=== PATIENT | female | born 1995 | race Caucasian/White ===

== ENCOUNTER 2025-04-07 14:55 | Emergency (ER) | payer OTHER, SELFPAY ==
--- OUTSIDE RECORDS SUMMARY | 2025-04-07 15:10 | XMS_ITS | Clinical Summary ---
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 Name Role Phone Pcp, None Selected Primary Care Provider Unavail able Allergies Active Allergy Reactions Criticality Noted Date Comments Promethazine 05/18/2017 Other Reaction(s): Not available Medications amitriptyline (ELAVIL) 25 mg tablet TAKE ONE TABLET BY MOUTH ONE TIME DAILY AT BEDTIME Active SUMAtriptan succinate (Zembrace Symtouch) 3 mg/0.5 mL pen injector INJECT 0.5 MILLILITER (3 MG) AT ONSET OF MIGRAINE, BY SUBCUTANEOUS ROUTE ONCE; MAY REPEAT IN 1 HOUR IF PAIN RETURNS/INCREASE S IN SEVERITY; (MAX 4 DOSES/24 HOURS) Active Active Problems Problem Noted Date Diagnosed Date Acute recurrent pansinusitis 03/29/2023 Social History Tobacco Use Types Packs/Day Years Used Date Smoking Tobacco: Former Cigarettes Q uit: 05/22/2023 Passive Smoke Exposure: Never Smokeless Tobacco: Never Tobacco Cessation:Counseling Given: Not Answered Alcohol Use Standard Drinks/Week Comments Yes 0 (1 standard drink = 0.6 oz pur e alcohol) rarely Comments No Sex and Gender Information Value Date Recorded Sex Assigned at Female 01/31/2023 3:44 PM PDT Legal Sex Female 11:03 AM PDT Gender Identity Female 01/31/2023 3:44 PM PDT Sexual Orientation Straight 01/31/2023 3: 44 PM PDT Last Filed Vital Signs Vital Sign Reading Time Taken Comments Blood Pressure 131/86 06/13/2023 9:30 AM PST Pulse 99 06/13/2023 9:30 AM PST Temperature 37.1 C (98.8 F) 06/07/2023 12:37 PM PST Respiratory Rate 14 06/07/2023 9:10 AM PST Oxygen Saturation 99% 06/13/2023 9:30 AM PST Inhaled Oxygen Concentration - - Weight 50.2 kg (110 lb 10.7 oz) 06/07/2023 8:57 AM PST Height 148.6 cm (4' 10.5) 06/07/2023 8:57 AM PS T Body Mass Index 22.74 06/07/2023 8:57 AM PST Plan of Treatment Health Maintenance Due Date Last Done Comments Depression Screening (PHQ-2) 2007 Varicella Vaccines (1 of 2 - 13+ 2-dose series) 08/07/2008 Cervical Cancer Screening 08/07/2016 COVID-19 Vaccine (2 - 2024- season) 2024 01/12/2022 Influenza Vaccine (#1) 2025 02/13/2023, 2006 DTaP,Tdap,and Td Vaccines (3 - Td or Tdap) 09/29/2029 09/30/2019, 07/18/2008 RSV Patients Over 60 years OR qualifying ( Patients) (1 - 1-dose 75+ series) 08/07/2070 Hepatitis B Vaccines Completed 02/05/1996, 1995, 1995 IPV Vaccines Completed 08/09/2000, 01/16, 1995, Additional history exists MMR Vaccines Completed 08/09/2000, 09/17/1996 HPV Vaccines Completed 04/08/2009, 12/2008, 07/18/2008 HM Pneumococcal Combined Age 0-49 Aged Out No longer eligible based on patient's age to complete this topic Hepatitis A Vaccines Aged Out No long er eligible based on patient's age to complete this topic Insurance [id number] [place] [id number] Advance Directives * Full Code (Latest Code Status on File) Date Activated Date Inactivated Comments 06/07/2023 8:49 AM 06/07/2023 2:55 PM Care 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
[2025-04-07 15:22] VITALS: BP 127/68; PULSE 91; RESP 18; TEMP 36.4; O2SAT 99; BMI 30.3
--- NOTE | 2025-04-07 16:25 | ED.GENADULT ---
HPI - General Adult <Chin Lau PA-C - Last Filed: 04/07/25 18:36> General Chief complaint: Nasal Problem Stated complaint: sinus pain, vomiting, x3-4hrs Time Seen by Provider: 04/07/25 15:40 Source: patient Mode of arrival: Family Vehicle History of Present Illness HPI narrative: 29-year-old female with past medical history migraine, sinus infections presents to the ED today with a headache and sinus pain. Patient endorses photophobia, left-sided headache with tenderness around the sinuses. Patient was diagnosed with influenza a last week, following which she developed these symptoms over the last 2 days. Patient states that she has a history of frequent sinus infections. Denies fever, chills over the last few days. Endorses nasal congestion, sinus congestion. Related Data Previous Rx's ?Medication ?Instructions ?Recorded amoxicillin 875 mg-potassium 1 tab PO Q12H 10 days #20 tabs 04/07/25 clavulanate 125 mg tablet Allergies Allergy/AdvReac Type Severity Reaction Status Date / Time No Known Drug Allergies Allergy Verified 04/07/25 15:23 Review of Systems <Chin Lau PA-C - Last Filed: 04/07/25 18:36> Constitutional Constitutional: Denies chills, Denies fatigue, Denies fever(s), Denies frequent falls, Reports headache(s), Denies lethargy and Denies weakness Eyes Eyes: Denies change in vision, Denies eye discharge, Denies irritation and Denies loss of vision ENT Ears, Nose, Mouth, and Throat: Denies change in voice, Denies dizziness, Reports headache(s), Denies neck pain, Reports sinus pain, Reports sinus pressure, Denies sore throat and Denies throat swelling Cardiovascular Cardiovascular: Denies chest pain, Denies irregular heart rhythm, Denies lightheadedness, Denies palpitations, Denies dyspnea, Denies dyspnea on exertion and Denies orthopnea Respiratory Respiratory: Denies cough, Denies dyspnea, Denies dyspnea on exertion and Denies wheezing Gastrointestinal Gastrointestinal: Denies abdominal pain, Denies change in bowel habits, Denies diarrhea, Denies nausea and Denies vomiting Musculoskeletal Musculoskeletal: Denies neck pain and Denies numbness Integumentary/Breasts Skin/Breast: Denies pruritus, Denies erythema, Denies rash and Denies wounds Neurologic Neurologic: Denies behavioral changes, Denies confusion, Denies dizziness, Denies frequent falls, Reports headache(s), Denies loss of vision, Denies numbness and Denies weakness Psychiatric Psychiatric: Denies anxiety, Denies behavioral changes, Denies confusion, Denies depression, Denies homicidal ideation and Denies suicidal ideation Endocrine Endocrine: Denies fatigue, Denies flushing and Denies palpitations Hematologic/Lymphatic Hematologic/Lymphatic: Denies easy bruising Allergic/Immunologic Allergic/Immunologic: Denies urticaria, Denies throat swelling and Denies wheezing Exam <Chin Lau PA-C - Last Filed: 04/07/25 18:36> Narrative Exam Narrative: Const General:?cooperative, healthy appearing and comfortable HENCO Head:?normal to inspection Ears:?hearing grossly normal bilaterally Nose:?external nose normal Face and sinus: Left maxillary sinus tenderness Mouth:?oral mucosae normal Throat:?posterior oropharynx normal Eyes General: photophobia Neck Neck:?normal visual inspection and no lymphadenopathy noted Resp Effort & Inspection:?normal respiratory effort Auscultation:?clear to auscultation bilaterally Cardio Rate:?regular rate Rhythm:?regular rhythm Neuro General:?patient alert, patient awake and patient oriented x3; PERRLA; gait normal Initial Vital Signs Initial Vital Signs: Vital Signs Temperature 97.5 F L 04/07/25 15:22 Pulse Rate 91 H 04/07/25 15:22 Respiratory Rate 18 04/07/25 15:22 Blood Pressure 127/68 04/07/25 15:22 Pulse Oximetry 99 04/07/25 15:22 Oxygen Delivery Method Room Air 04/07/25 15:22 <Cylde Knight DO - Last Filed: 04/07/25 21:59> Initial Vital Signs Initial Vital Signs: Vital Signs Temperature 97.5 F L 04/07/25 15:22 Pulse Rate 91 H 04/07/25 15:22 Respiratory Rate 18 04/07/25 15:22 Blood Pressure 127/68 04/07/25 15:22 Pulse Oximetry 99 04/07/25 15:22 Oxygen Delivery Method Room Air 04/07/25 15:22 Course <GERSON Ballesteros Last Filed: 04/07/25 18:36> Orders Ordered: Discontinued Medications Acetaminophen (Acetaminophen 325 Mg Tablet) 975 mg PO NOW ONE Stop: 04/07/25 17:00 Last Admin: 04/07/25 17:16 Dose: 975 mg Documented By: TIM Dexamethasone (Dexamethasone 10 Mg/Ml Vial) 10 mg PO NOW ONE Stop: 04/07/25 17:00 Last Admin: 04/07/25 17:16 Dose: 10 mg Documented By: TIM Ketorolac Tromethamine (Ketorolac 30 Mg/Ml Vial) 30 mg IM NOW ONE Stop: 04/07/25 17:00 Last Admin: 04/07/25 17:16 Dose: 30 mg Documented By: TIM Ondansetron HCl (Ondansetron 4 Mg Odt) 4 mg SL NOW ONE Stop: 04/07/25 16:53 Last Admin: 04/07/25 16:58 Dose: 4 mg Documented By: JANETTE Vital Signs Vital signs: Vital Signs - 8 hr 04/07/25 15:22 04/07/25 16:58 04/07/25 17:17 Temperature 97.5 F L Pulse Rate 91 H 75 84 Respiratory Rate 18 18 16 Blood Pressure 127/68 130/79 125/75 Pulse Oximetry 99 98 99 Oxygen Delivery Method Room Air Room Air Room Air <Clyde Knight, DO - Last Filed: 04/07/25 21:59> Orders Ordered: Discontinued Medications Acetaminophen (Acetaminophen 325 Mg Tablet) 975 mg PO NOW ONE Stop: 04/07/25 17:00 Last Admin: 04/07/25 17:16 Dose: 975 mg Documented By: TIM Dexamethasone (Dexamethasone 10 Mg/Ml Vial) 10 mg PO NOW ONE Stop: 04/07/25 17:00 Last Admin: 04/07/25 17:16 Dose: 10 mg Documented By: TIM Ketorolac Tromethamine (Ketorolac 30 Mg/Ml Vial) 30 mg IM NOW ONE Stop: 04/07/25 17:00 Last Admin: 04/07/25 17:16 Dose: 30 mg Documented By: TIM Ondansetron HCl (Ondansetron 4 Mg Odt) 4 mg SL NOW ONE Stop: 04/07/25 16:53 Last Admin: 04/07/25 16:58 Dose: 4 mg Documented By: JANETTE Vital Signs Vital signs: Vital Signs - 8 hr 04/07/25 15:22 04/07/25 16:58 04/07/25 17:17 Temperature 97.5 F L Pulse Rate 91 H 75 84 Respiratory Rate 18 18 16 Blood Pressure 127/68 130/79 125/75 Pulse Oximetry 99 98 99 Oxygen Delivery Method Room Air Room Air Room Air Medical Decision Making <Chin Lau PA-C - Last Filed: 04/07/25 18:36> [facility] Narrative Medical decision making narrative: 29-year-old female with past medical history migraine, sinus infections presents to the ED today with a headache and sinus pain. Patient does have some maxillary sinus tenderness on the left side. Headache is consistent with a primary headache. No red flags. Patient was given Toradol, Tylenol, dexamethasone in the ED. Patient discharged home on antibiotics. ED return precautions discussed with patient. Patient verbalized understanding. Medical records reviewed: Yes <Clyde Knight, - Last Filed: 04/07/25 21:59> [facility] Narrative Medical decision making narrative: 29-year-old female with past medical history migraine, sinus infections presents to the ED today with a headache and sinus pain. Patient does have some maxillary sinus tenderness on the left side. Headache is consistent with a primary headache. No red flags. Patient was given Toradol, Tylenol, dexamethasone in the ED. Patient discharged home on antibiotics. ED return precautions discussed with patient. Patient verbalized understanding. Medical records reviewed: Yes Co-sign statement: I was available for consultation during this patient's emergency department visit. This chart is being signed by myself for administrative purposes only. I do not have direct contact with this patient during this visit. They were seen independently by the APC. Discharge Plan Departure Patient Disposition: Home Clinical Impression: Acute sinus infection Qualifiers: Sinusitis location: unspecified location Recurrence: not specified as recurrent Qualified Code(s): J01.90 - Acute sinusitis, unspecified Instructions: DI for Sinusitis Activity Restrictions/Additional Instructions: You were evaluated in the emergency department today for sinus congestion, headache. You were given Toradol, Tylenol, dexamethasone for the headache. You are being prescribed antibiotics for a potential sinus infection. Please follow-up with your PCP as soon as possible. Return to the ED if you have worsening symptoms. Prescriptions: New amoxicillin-pot clavulanate 875-125 mg tablet 1 tab PO Q12H 10 Days Qty: 20 0RF Stand Alone Forms: Patient Portal/API
[2025-04-07 16:58] VITALS: BP 130/79; PULSE 75; RESP 18; O2SAT 98
[2025-04-07] MEDS: ONDANSETRON 4 MG ODT SL (16:58)
[2025-04-07] MEDS: KETOROLAC 30 MG/ML VIAL IM (17:16)
[2025-04-07] MEDS: ACETAMINOPHEN 325 MG TABLET 975 MG PO (17:16)
[2025-04-07 17:17] VITALS: BP 125/75; PULSE 84; RESP 16; O2SAT 99
== END 2025-04-07 17:19 | disposition home or self-care (01) ==
PROVIDERS: Emergency Provider Student in an Organized Health Care Education/Training Program
DX: J01.90 Acute sinusitis, unspecified (principal); R11.10 Vomiting, unspecified; R51.9 Headache, unspecified
CPT/HCPCS: 99283; J1100; J1885